=== PATIENT | male | born 1940 | race Caucasian/White ===

== ENCOUNTER → 2016-06-13 | Outpatient (CLI) | payer OTHER ==
[~2016-06-13] MED LIST: ACETAMINOPHEN PO; ALBUTEROL 0.5ML INH; ASPIRIN81 M1 PO; ASTELIN137 MCG INH; AVELOX400 MG PO; AVODART0.5 MG PO; BIOFLEX TABLET1 EACH PO; CARDURA; CARDURA PO; CARTIA XT ER PO; CARTIA XT PO; CELEBREX; CERTAGEN PO; COLACE PO; COUMADIN PO; FERRO-TIME325 MG PO; FERROUS SULFATE PO; FISH OIL 1,001000 MG PO; FLOMAX0.4 M1 PO; GLUCOSAMINE CH1 EACH PO; IRON1 TAB PO; K-DUR10 MEQ PO; LASIX PO; LEVAQUIN PO; LISINOPRIL; LORTAB 7.5-5001 TAB PO; MAXZIDE 75/50 T1 TA1 PO; MAXZIDE 75/50 T1 TAB; MAXZIDE 75/50 T1 TAB PO; METAMUCIL PO; METRONIDAZOLE PO; MULTICHEW1 TAB.CHEW PO; NASONEX17 GM; NEXIUM; PATIENT'S PHARMACY; PRADAXA150 MG PO; PRAVACHOL; PRAVACHOL PO; PREVACID PO; QVAR7.3 G1 INH; RAPAFLO8 MG PO; STOOL SOFTENER1 EAC1 PO; TOPROL XL PO; VIT C PO; VITAMIN D400 UNI1 PO; ZYLOPRIM PO
--- NOTE | ~2016-06-13 | MR18 ---
[facility] A Service of [facility] & [facility] RADIOLOGY TEXT RESULTS PATIENT: PRAVEENA DE LA TORRE LOCATION: [facility] : 36 UNIT #: [id number] AGE: [address]: Manuel Poe MD SEX: M ORDER DR: [id number] [address] [address] [id number] O MR#: [id number] Acc #: [id number] NAME: PRAVEENA DE LA TORRE : 1940 SEX: M STUDY DATE/TIME: 06/13/2016 15:17 UNIT: [facility] ROOM: STUDY DESCRIPTION: MR Brain Wo Contrast Attending Physician: Manuel Poe M.D. Referring Physician: Manuel Poe M.D. Ordering Physician: Manuel Poe M.D. Primary Care Physician: Shane Wei M.D. MRI CENTER REPORT This report is preliminary unless electronic signature is present. EXAM MRI of the brain without contrast dated 06/13/2016 COMPARISON None HISTORY Small B-cell lymphoma. Bouts of amnesia, episodes of depression, fatigue, lethargy and confusion for many years. FINDINGS Multisequence multiplanar imaging of the brain was obtained without contrast. Without contrast, subtle enhancing lesions cannot be identified in this patient with known lymphoma. There are multiple hyperintense T2-signal lesions noted in the subcortical and periventricular white matter, basal ganglia, ramirez. Vascular flow voids of the major cerebral arteries and dural venous sinuses are not completely occluded in these thicker slices. Status post bilateral cataract surgery. Paranasal sinuses demonstrate mild mucosal thickening. S-shaped nasal septal deviation is seen. Mild mastoid air cell mucosal thickening is seen bilaterally. Degenerative changes are noted in the cervical spine. IMPRESSION 1. Scattered multiple hyperintense T2-signal lesions are noted in the brain suggestive of chronic microvascular ischemic change based on age and statistics. However focal small mass amidst this change cannot be completely excluded without contrast. There are no old studies available to ensure stability either. 2. No significant mass effect, midline shift or hydrocephalus is seen. Left lateral ventricle is slightly larger when compared to the right but there are no obstructive lesions noted in the region of the foramen of Monro and this appearance is probably normal for this patient. [facility] A Service of [facility] RADIOLOGY TEXT RESULTS PATIENT: PRAVEENA DE LA TORRE LOCATION: [facility] : 36 UNIT #: [id number] AGE: [address]: Manuel Poe MD SEX: M ORDER DR: 3. Diffuse parenchymal volume loss is seen which appears to be age appropriate. Dictated by... Neelam Singer M.D. THIS IS AN ELECTRONICALLY VERIFIED REPORT Neelma Singer M.D. at 06/14/2016 4:57 PM RACHANA/good TD: 06/14/2016 11:20 JOB #: [id number] MRI CENTER REPORT Page 1 of 1
== END | disposition home or self-care (01) ==
LOC: SMRI 13:46
DX: C83.08 Small cell B-cell lymphoma, lymph nodes of multiple sites (principal); R41.3 Other amnesia; M89.9 Disorder of bone, unspecified
CPT/HCPCS: 70551